=== PATIENT | male | born 1940 | race Two or more races ===

== ENCOUNTER 2020-07-21 17:13 | Inpatient (IN) | payer OTHER, MEDICAID ==
[~2020-07-21] VITALS: Ht 175.3 cm; Wt 65.2 kg
[2020-07-21] MEDS ORDERED: dilTIAZem 25 MG/5 ML VIAL IV ONE ×2 (18:30→20:00)
[2020-07-21 18:42] LABS: Basophils # (auto) 0 10 ^3/uL (0-0.2); Basophils % (auto) 0.3 % (0.0-2.0); Eosinophils # (auto) 0 10 ^3/uL (0-0.8); Eosinophils % (auto) 0.2 % (0.0-7.0); Hematocrit 39.1 % (41.0-53.0); Hemoglobin 12.7 g/dL (13.5-17.5); Lymphocytes # (auto) 0.7 10 ^3/uL (0.4-5.4); Lymphocytes % (auto) 13.5 % (10.0-50.0); Mean Corpuscular Hemoglobin 31.2 pg (28.0-32.0); Mean Corpuscular Hgb Conc. 32.6 g/dL (32.0-36.0); Mean Corpuscular Volume 95.8 fL (80.0-100.0); Monocytes # (auto) 0.6 10 ^3/uL (0-1.3); Monocytes % (auto) 12.3 % (0.0-12.0); Neutrophils # (auto) 3.9 10 ^3/uL (1.6-8.6); Neutrophils % (auto) 73.7 % (37.0-80.0); Nucleated Red Blood Cells % 0.3 %; Platelet Count (auto) 183 10^3/uL (140-450); Red Blood Cells 4.08 10^6/uL (4.5-5.90); Red Cell Distribution Width 14.9 % (11.8-14.3); White Blood Cell 5.3 10^3/uL (4.4-10.8)
[2020-07-21 19:01] LABS: Albumin 3.3 g/dL (3.4-5.0); Calcium 9.4 mg/dL (8.5-10.1); Magnesium 2.5 mg/dL (1.6-2.6); Potassium 4.5 mmol/L (3.5-5.1)
[2020-07-21 19:07] LABS: Bilirubin, Total 1.5 mg/dL (0.2-1.0); Total Protein 8.5 g/dL (6.4-8.2)
[2020-07-21 19:52] LABS: INR 1.27 (0.9-1.15); Partial Thromboplastin Time 26.8 sec (23.0-31.2)
[2020-07-21] MEDS ORDERED: SODIUM CHLORIDE 0.9% 500 ML IV ONE (20:00)
[2020-07-21] MEDS ORDERED: ASPirin 81 mg TAB PO ONE (20:00)
[2020-07-21] MEDS ORDERED: TEMAZEPAM 15 MG CAP PO PRN (21:00)
[2020-07-21] MEDS ORDERED: ONDANSETRON HCL 4 MG/2 ML VIAL IV PRN (21:00)
[2020-07-21] MEDS ORDERED: ACETAMINOPHEN 325 MG TAB PO PRN (21:00)
[2020-07-21] MEDS ORDERED: NITROGLYCERIN 0.4 MG SL TAB SL PRN (21:00)
[2020-07-21] MEDS ORDERED: MORPHINE SULF INJ 2 MG/ML SYRINGE 1ML IV PRN (21:00)
[2020-07-21] MEDS ORDERED: DIGOXIN 0.125 MG TAB PO ONE ×2 (21:30→22:30)
--- NOTE | 2020-07-21 21:46 | NUR ---
ER CALLED CARDIO CONSULT WITH DR. STALEY.
[2020-07-21] MEDS: APIXABAN 2.5 MG TAB PO SCH (22:30)
[2020-07-21] MEDS: ATORVASTATIN 20 MG TAB PO SCH (22:30)
[2020-07-21] MEDS: METOPROLOL TARTRATE 50 MG TAB PO SCH (22:30)
[2020-07-21] MEDS ORDERED: AMIODARONE HCL 150 MG in D5W 5% 100 ML IV ONE (23:15)
[2020-07-21] MEDS ORDERED: AMIODARONE 450mg/250ml AE 250 ML IV SCH (23:30)
[2020-07-21] MEDS ORDERED: AMIODARONE HCL (50 MG/ ML) 3 ML VIAL IV ONE (23:36)
[2020-07-22] MEDS ORDERED: AMIODARONE 450mg/250ml AE 250 ML IV SCH (05:30)
[2020-07-22 06:32] LABS: Basophils # (auto) 0.1 10 ^3/uL (0-0.2); Basophils % (auto) 0.9 % (0.0-2.0); Eosinophils # (auto) 0.2 10 ^3/uL (0-0.8); Eosinophils % (auto) 2.8 % (0.0-7.0); Hematocrit 38.5 % (41.0-53.0); Hemoglobin 12.4 g/dL (13.5-17.5); Lymphocytes # (auto) 1.1 10 ^3/uL (0.4-5.4); Lymphocytes % (auto) 18.8 % (10.0-50.0); Mean Corpuscular Hemoglobin 31.2 pg (28.0-32.0); Mean Corpuscular Hgb Conc. 32.2 g/dL (32.0-36.0); Monocytes # (auto) 0.8 10 ^3/uL (0-1.3); Monocytes % (auto) 14.2 % (0.0-12.0); Neutrophils # (auto) 3.7 10 ^3/uL (1.6-8.6); Neutrophils % (auto) 63.3 % (37.0-80.0); Nucleated Red Blood Cells % 0.6 %; Platelet Count (auto) 187 10^3/uL (140-450); Red Blood Cells 3.97 10^6/uL (4.5-5.90); Red Cell Distribution Width 15.1 % (11.8-14.3); White Blood Cell 5.8 10^3/uL (4.4-10.8)
[2020-07-22 06:53] LABS: Calcium 9.1 mg/dL (8.5-10.1); Potassium 5.2 mmol/L (3.5-5.1)
[2020-07-22 06:58] LABS: Bilirubin, Total 1.9 mg/dL (0.2-1.0)
[2020-07-22] MEDS ORDERED: AMIODARONE HCL 200 MG TAB PO ONE (08:00)
[2020-07-22] MEDS: METOPROLOL TARTRATE 50 MG TAB PO SCH ×2 (09:42→10:00)
[2020-07-22] MEDS: FUROSEMIDE 40 MG TAB PO SCH (09:42)
[2020-07-22] MEDS: PANTOPRAZOLE 40 MG TAB PO SCH (09:42)
[2020-07-22] MEDS ORDERED: ASPirin 81 mg TAB PO SCH (10:00)
[2020-07-22] MEDS: APIXABAN 2.5 MG TAB PO SCH ×2 (10:00→22:04)
[2020-07-22] MEDS ORDERED: LISINOPRIL 10 MG TAB PO SCH (10:00)
[2020-07-22] MEDS ORDERED: BISACODYL 10 MG RECT SUPP PR PRN (10:00)
[2020-07-22] MEDS ORDERED: ALBUTEROL SULF 2.5 MG/0.5ML(0.5%) NEB SOLN NEB PRN (10:00)
[2020-07-22] MEDS ORDERED: DOCUSATE SOD 100 MG CAP PO PRN (10:00)
--- NOTE | 2020-07-22 12:25 | NUR ---
Received a call from Vandana at [facility] [phone], asking if I would fax clinicals to her because she had not received anything yet, verbalized understanding and gave update verbal report on the patient and faxed clinicals as requested. Addendum: 07/22/20 at 1544 by Merle Smith RN Faxed also Home Health Safety Eval.
[2020-07-22 12:44] VITALS: BP 140/80
--- NOTE | 2020-07-22 12:45 | NUR ---
Telemetry admit from ER JUSTYNAKIEL admitted to Telemetry unit after SBAR received. Patient oriented to SARAH MARKS RN primary RN, unit, room, bed, and unit policies regarding patient care and visiting hours. Patient now on continuous telemetry monitoring, tele box # 32 and telemetry reading on arrival to unit is Afib 81 . Patient placed on bedside oxygen, weighed by bedscale and encouraged to call if they need something. All questions and concerns addressed, patient verbalized understanding.
[2020-07-22] MEDS ORDERED: METO-159 PO (13:39)
--- NOTE | 2020-07-22 13:45 | NUR ---
Called Vandana RANGEL at [facility] [phone], stated she received the clinicals but wanted the ER notes to see if it showed the elevated HR, stated I would fax the ER notes, which was done.
[2020-07-22] MEDS ORDERED: TAMS0.4C36 PO (14:04)
[2020-07-22] MEDS ORDERED: ATOR20TA50 PO (14:04)
[2020-07-22] MEDS ORDERED: FIN5T PO (14:04)
[2020-07-22] MEDS ORDERED: APIX2.5T PO (14:04)
[2020-07-22] MEDS ORDERED: FUR20T PO (14:04)
[2020-07-22 14:15] VITALS: BP 140/80
[2020-07-22 14:29] LABS: Urine Bacteria NONE SEEN /hpf (None Seen); Urine Blood Negative /uL (Negative); Urine Hyaline Cast MANY /lpf (0 - 2); Urine Mucus FEW (None Seen); Urine Specific Gravity 1.015 (1.001-1.035); Urine WBC 18 /hpf (0 - 3)
[2020-07-22 14:40] LABS: Protein, Urine 158.9 mg/dL (0.0-11.9)
--- NOTE | 2020-07-22 15:10 | NUR ---
Spoke to informed him that another RN and I were unable to insert the jauregui for patient. gave me the order to consult urology with Dr.Samuel Schroeder. Consult ordered.
--- NOTE | 2020-07-22 15:40 | NUR ---
Received a call from Vandana RANGEL at [facility] stating, still reviewing the chart but needs notes stating the patient was started on a Drip for his HR faxed over nurses notes from the ER stating that he was started on Amiodarone Drip. Gave authorization for the Home Health [id number] and it will be through [facility]. Called Kindra CHAO and made her aware.
[2020-07-22] MEDS ORDERED: LIDOCAINE 2% JELLY 11ml (GLYDO) UR ONE (16:15)
[2020-07-22] MEDS ORDERED: MORPHINE SULF INJ 2 MG/ML SYRINGE 1ML IV ONE (16:45)
[2020-07-22 16:48] VITALS: BP 128/70
[2020-07-22] MEDS ORDERED: diphenhdrAMINE HCL 50 MG/1 ML VL IV PRN (17:00)
--- NOTE | 2020-07-22 17:00 | NUR ---
ASPHALT ENGINEER Maribel Davey came to put in coude catheter for patient since we could not put in a jauregui for patient. Patient was in pain ASPHALT ENGINEER ordered 2mg morphine once before the procedure. Patient receive the morphine started itching a little bit , patient states that he is not allergic to morphine and states that he often itches at home. The itching stopped but ASPHALT ENGINEER still ordered benadryl 25mg IV q 4 PRN.
[2020-07-22] MEDS ORDERED: DEXTROSE (50%) 50ML SYRG IV PRN (18:30)
[2020-07-22] MEDS: TAMSULOSIN HYDROCHLORIDE 0.4 MG CAP PO SCH (18:51)
[2020-07-22 21:53] VITALS: BP 128/77
[2020-07-22] MEDS: InsuLIN REG 1unit/0.01ml Soln (100units/ml) SC SCH (21:59)
[2020-07-22] MEDS: SENNA 8.6 MG TAB PO SCH (22:00)
[2020-07-22] MEDS: ACCU-CHEK COMFORT CURVE STRIP VI SCH (22:03)
[2020-07-22] MEDS: ATORVASTATIN 20 MG TAB PO SCH (22:03)
[2020-07-22] MEDS: AMIODARONE HCL 200 MG TAB PO SCH (22:04)
[2020-07-23 05:56] VITALS: BP 144/70
[2020-07-23] MEDS: InsuLIN REG 1unit/0.01ml Soln (100units/ml) SC SCH ×4 (06:03→22:00)
[2020-07-23] MEDS: ACCU-CHEK COMFORT CURVE STRIP VI SCH ×4 (06:05→22:00)
--- NOTE | 2020-07-23 07:13 | NUR ---
closing note pt is on 2Lnc. no complaints of pain or discomfort. endorsed care to day shift JUAREZ Fortune.
--- NOTE | 2020-07-23 09:00 | NUR ---
Patient refused labs at 6:00 am for production shift supervisor nurse. This morning the labeling associate came again patient still refused. I went to talk to patient he was upset and said that yesterday he had too many labs done that he does not want to get poked again.
--- NOTE | 2020-07-23 09:34 | NUR ---
Respiratory note: PT ASSESSED FOR PRN MED NEB TX. PT IN NO RESPIRATORY DISTRESS AT THIS TIME. SPO2 WAS 99% ON 2L NC. HR 67, RR 15. NO TX GIVEN AT THIS TIME.
[2020-07-23 09:48] VITALS: BP 100/57
--- NOTE | 2020-07-23 10:00 | NUR ---
Patient reports that he walks fine and does not need P.T.
[2020-07-23] MEDS: AMIODARONE HCL 200 MG TAB PO SCH ×2 (11:38→22:00)
[2020-07-23] MEDS: APIXABAN 2.5 MG TAB PO SCH (11:38)
[2020-07-23] MEDS: PANTOPRAZOLE 40 MG TAB PO SCH (11:41)
[2020-07-23] MEDS: FUROSEMIDE 40 MG TAB PO SCH (11:41)
[2020-07-23] MEDS: METOPROLOL TARTRATE 50 MG TAB PO SCH ×2 (11:42→22:00)
[2020-07-23 13:00] VITALS: BP 96/57
--- NOTE | 2020-07-23 14:19 | NUR ---
Lab came again patient refused again and said that he will not get poked. I got transfered to to let him know , but there was no answer. I will try again.
--- NOTE | 2020-07-23 14:36 | NUR ---
Assessment Patient is an 80-year-old male. Assessment was completed with patient Caregiver Yenni . Per Yenni prior to admission patient lived home with her and functioned with assistance. Per Yenni patient will return home to his prior living arrangements post discharge and she will transport patient home. Advised Yenni there is a social service consult for [facility] for jauregui care, physical therapy, and safety evaluation. Informed Yenni she has the right to participate in all discharge planning. Yenni verbalized understanding and agreed to discharge plan. Faxed clinical information to [facility]. Adan Villa with [facility] PH: [phone] patient has been accepted and service to start within 24-48hrs upon d/c day. Addendum: 07/23/20 at 1450 by BRANDON CHAO Amended: Links added.
[2020-07-23 17:00] VITALS: BP 102/65
--- NOTE | 2020-07-23 17:23 | NUR ---
Spoke to to tell him that patient is refusing labs. aware.
[2020-07-23] MEDS: TAMSULOSIN HYDROCHLORIDE 0.4 MG CAP PO SCH (18:10)
--- NOTE | 2020-07-23 19:34 | NUR ---
PATIENT EDUCATED ON THE IMPORTANCE OF LABS AND TREATMENT. PATIENT VERBALIZED UNDERSTANDING BUT STILL REFUSED.DR.SANDHU ZEPEDA.
[2020-07-23 21:00] VITALS: BP 92/51
[2020-07-23] MEDS: SENNA 8.6 MG TAB PO SCH (22:00)
--- NOTE | 2020-07-23 22:00 | NUR ---
Pt refused Accucheck/Medication Pt verbalized he does not want to be poked by any needles. Educated pt regarding importance of maintaining optimal glucose levels to prevent further complications. Pt tried to deny eliquis, and Lipitor, however accepted and decided to receive it.
[2020-07-23 22:43] LABS: Albumin 2.3 g/dL (3.4-5.0); Calcium 8.3 mg/dL (8.5-10.1); Potassium 4.4 mmol/L (3.5-5.1)
[2020-07-23 22:47] LABS: Phosphorus 4.3 mg/dL (2.5-4.90); Total Protein 6.2 g/dL (6.4-8.2)
[2020-07-23 22:54] LABS: BUN/Creatinine Ratio 28.5
[2020-07-24] MEDS: APIXABAN 2.5 MG TAB PO SCH ×3 (00:10→22:12)
[2020-07-24] MEDS: ATORVASTATIN 20 MG TAB PO SCH ×2 (00:10→22:12)
[2020-07-24 05:00] VITALS: BP 108/64
--- NOTE | 2020-07-24 05:00 | NUR ---
PT refused labs. Pt educated regarding importance of drawing Troponin, pt verbalized understanding but still refused saying "I do not want to be poked any longer, I am tired of it and want to go home already". Per engineering writer will attempt again in a few hours.
[2020-07-24] MEDS: InsuLIN REG 1unit/0.01ml Soln (100units/ml) SC SCH ×4 (06:25→22:08)
[2020-07-24] MEDS: ACCU-CHEK COMFORT CURVE STRIP VI SCH ×4 (06:25→22:08)
--- NOTE | 2020-07-24 07:00 | NUR ---
Pt refused AM accucheck. Pt educated regarding importance but still refused. MD is already aware of refusal of treatment.
--- NOTE | 2020-07-24 07:00 | NUR ---
PRN MN TX NOT INDICATED AT THIS TIME. PT IS AWAKE, ALERT AND ORIENTED. PT IN RA, 96% O2 SATS, HR 61 BPM, RR18 BPM, BS ARE CLEAR TO AUSCULTATION. RESPIRATION IS EVEN AND NON LABORED. PT DENIES SOB OR ANY OTHER RESPIRATORY DISTRESS. WILL CONTINUE TO MONITOR PT.
[2020-07-24 09:00] VITALS: BP 104/44
[2020-07-24] MEDS: METOPROLOL TARTRATE 50 MG TAB PO SCH ×2 (10:00→22:00)
[2020-07-24] MEDS: AMIODARONE HCL 200 MG TAB PO SCH ×2 (10:33→22:13)
[2020-07-24] MEDS: PANTOPRAZOLE 40 MG TAB PO SCH (10:34)
[2020-07-24] MEDS: FUROSEMIDE 40 MG TAB PO SCH (10:36)
--- NOTE | 2020-07-24 12:30 | NUR ---
DOCTOR BOWEN AT BEDSIDE DISCUSSING POC WITH PATIENT, PATIENT TO SEE DOCTOR BOWEN OUT PATIENT IN 2 WEEKS, PATIENT TO GO HOME ON ALLOPURINOL MEDICATION. PATIENT VERBALIZES UNDERSTANDING AND AGREES WITH POC. MD INFORMED PATIENT DOES NOT WANT TO GO HOME WITH SERRANO CATHETER, PER MD OKAY TO D/C SERRANO ONCE'S PATIENT IS DISCHARGED BY PCP.
[2020-07-24] MEDS ORDERED: ALLOPURINOL 100 MG TAB PO ONE (12:45)
[2020-07-24 13:00] VITALS: BP 137/71
[2020-07-24 17:06] VITALS: BP 104/57
[2020-07-24] MEDS: TAMSULOSIN HYDROCHLORIDE 0.4 MG CAP PO SCH (17:36)
--- NOTE | 2020-07-24 19:00 | NUR ---
Opening Shift Note Assumed care of patient, awake and alert. No S/S of distress/SOB or pain. Insructed on POC and to callfor assist PRN, will continue to monitor for changes Q1hr and PRN.
[2020-07-24 22:00] VITALS: BP 127/62
[2020-07-24] MEDS: SENNA 8.6 MG TAB PO SCH (22:12)
--- NOTE | 2020-07-24 22:35 | NUR ---
PT ASSESSED FOR PRN MED NEB TX. SPO2 97% ON 2L NC, HR 58. PT DENIES ANY RESPIRATORY DISTRESS. NO TX INDICATED. PT IS AWARE TO HAVE RT PAGED IF TX NEEDED.
[2020-07-25 05:00] VITALS: BP 102/53
--- NOTE | 2020-07-25 05:00 | NUR ---
Pt refused AM blood draw Per pharmacy will come back in a few hours to try again.
--- NOTE | 2020-07-25 05:33 | NUR ---
Respiratory note: PT ASSESSED FOR PRN MED NEB TX. PT IS RESTING IN BED. 97% SPO2 ON RA, HR 63, 14 RR. BS WERE CLR/DIM. NO MED NEB TX GIVEN DUE TO NO DISTRESS NOTED AT THIS TIME. INFORMED PT TO CALL IF MED NEB NEEDED.
[2020-07-25] MEDS: InsuLIN REG 1unit/0.01ml Soln (100units/ml) SC SCH ×4 (06:10→22:00)
[2020-07-25] MEDS: ACCU-CHEK COMFORT CURVE STRIP VI SCH ×4 (06:11→22:00)
[2020-07-25 06:42] VITALS: BP 102/53
--- NOTE | 2020-07-25 07:10 | NUR ---
Opening Shift Note Assumed care of patient, awake and alert. No S/S of distress/SOB or pain. Insructed on POC and to callfor assist PRN, will continue to monitor for changes Q1hr and PRN. Bed alarm on
[2020-07-25 08:41] VITALS: BP 121/64
[2020-07-25] MEDS: APIXABAN 2.5 MG TAB PO SCH ×2 (09:30→22:16)
[2020-07-25] MEDS: ALLOPURINOL 100 MG TAB PO SCH (09:30)
[2020-07-25] MEDS: PANTOPRAZOLE 40 MG TAB PO SCH (09:30)
[2020-07-25] MEDS: AMIODARONE HCL 200 MG TAB PO SCH ×2 (09:31→22:12)
[2020-07-25] MEDS: FUROSEMIDE 40 MG TAB PO SCH (09:32)
[2020-07-25] MEDS: METOPROLOL TARTRATE 50 MG TAB PO SCH ×3 (10:00→22:00)
[2020-07-25] MEDS ORDERED: cefTRIAXone 1GM/50ML D5W 50 ML IV ONE (10:15)
--- NOTE | 2020-07-25 11:06 | NUR ---
RECEIVED PHONE CALL FROM [employer] INFORMING RN THAT PATIENT IS POSITIVE FOR MRSA IN URINE, SPOKE WITH DOCTOR DARRIN INFORMING MD OF PATIENTS MRSA RESULTS PER MD HOLD D/C TILL TOMORROW AND START PATIENT ON ZYVOX (SEE EMR FOR COMPLETE ORDERS)
--- NOTE | 2020-07-25 11:53 | NUR ---
Nutrition Assessment Notes please see attached link fro complete assessment [employer] needs BW 67 [id number] kcals (25-30 kcal/kgBW), Est Protein needs: 53-67 gms/day (0.8-1.0 gm/kgBW r/t elev RFT). Will continue to monitor and reassess prn. Addendum: 07/25/20 at [address] Amended: Links added.
[2020-07-25] MEDS ORDERED: LINEZOLID 600MG/300ML 300 ML IV ONE (12:00)
--- NOTE | 2020-07-25 12:59 | NUR ---
RECEIVED PHONE CALL [facility] PER CHIEF GUARD PATIENT HAS BEEN APPROVED FOR [facility].
[2020-07-25 13:00] VITALS: BP 128/68
--- NOTE | 2020-07-25 16:00 | NUR ---
IV removal/IV insertion IV leaking and removed with clean sterile technique, catheter fully intact. Pressure dressing applied to site. Patient tolerated well. IV insertion IV access obtained, via clean sterile technique by inserting 22 gauge catheter at right wrist after 1 attempt. IV secured properly. No trauma to site. Patient tolerated well.
[2020-07-25 16:25] VITALS: BP 97/57
[2020-07-25] MEDS: TAMSULOSIN HYDROCHLORIDE 0.4 MG CAP PO SCH (17:52)
--- NOTE | 2020-07-25 19:25 | NUR ---
Respiratory note: ASSESSMENT FOR PRN MED NEB TX. PT IN NO RESPIRATORY DISTRESS, SITTING UP IN BED WATCHING TV. HR 65, SPO2 96% ON ROOM AIR, RR 17, BS DIMINISHED CLEAR. MED NEB TX NOT INDICATED AT THIS TIME. WILL CONTINUE TO MONITOR.
--- NOTE | 2020-07-25 20:37 | NUR ---
Pt refused labs Per feed miller, will attempt again in a few hours. Pt educated regarding importance regarding drawing labs. Pt verbalized understanding but still refuses.
[2020-07-25 22:00] VITALS: BP 111/61
[2020-07-25] MEDS ORDERED: PATIENTS OWN MEDICATION (ZYVOX 600 MG) IV SCH (22:00)
[2020-07-25] MEDS: LINEZOLID 600MG/300ML 300 ML IV SCH (22:11)
[2020-07-25] MEDS: SENNA 8.6 MG TAB PO SCH (22:17)
[2020-07-25] MEDS: ATORVASTATIN 20 MG TAB PO SCH (22:17)
[2020-07-26 05:00] VITALS: BP 109/67
[2020-07-26] MEDS: ACCU-CHEK COMFORT CURVE STRIP VI SCH ×2 (06:22→11:30)
[2020-07-26] MEDS: InsuLIN REG 1unit/0.01ml Soln (100units/ml) SC SCH ×2 (06:24→12:00)
[2020-07-26 09:00] VITALS: BP 124/70
--- NOTE | 2020-07-26 09:41 | NUR ---
Received a call from Vandana RANGEL at [facility] [phone], gave update on patient and faxed progress notes, stated he has continue stay for 07/25/20 # [id number].
[2020-07-26] MEDS ORDERED: CARVEDILOL 3.125 MG TAB PO SCH (10:00)
--- NOTE | 2020-07-26 10:00 | NUR ---
SERRANO CATHETER SWITCHED TO LEG BAG, PATIENT EDUCATED ON HOW TO USE AND DRAIN LEG BAG, PATIENT VERBALIZED UNDERSTANDING AND RETURNED DEMONSTRATION.
[2020-07-26] MEDS: LINEZOLID 600MG/300ML 300 ML IV SCH (10:19)
[2020-07-26] MEDS: PANTOPRAZOLE 40 MG TAB PO SCH (10:20)
[2020-07-26] MEDS: ALLOPURINOL 100 MG TAB PO SCH (10:20)
[2020-07-26] MEDS: AMIODARONE HCL 200 MG TAB PO SCH (10:20)
[2020-07-26] MEDS: APIXABAN 2.5 MG TAB PO SCH (10:22)
[2020-07-26] MEDS: FUROSEMIDE 40 MG TAB PO SCH (10:23)
[2020-07-26 13:00] VITALS: BP 131/80
--- NOTE | 2020-07-26 14:25 | NUR ---
Discharge instructions given as ordered. Encourage to follow up with PMD as instructed. Gupta catheter education given. All questions and concerns addressed. Patient verbalized understanding. Medication reconciliation form completed and copy given to patient. IV removed with catheter intact, pressure dressing applied. Telemetry unit returned to ICU. Prescribed medications given to patient. Patient taken to vehicle via wheelchair with all personal belongings, accompanied by staff. Family member waiting in front lobby for transportation home. No distress noted at time of departure.
== END 2020-07-26 14:25 | disposition home health service (06) | DRG 280 ==
LOC: EDBD 17:13 → ER 17:13 → TELE 17:14 → TELE-CENTR 07-22 11:50
PROVIDERS: ADMIT Nurse Practitioner; ATTEND Internal Medicine
PROC: 4B02XSZ Measurement of Cardiac Pacemaker, External Approach (ICD-10-PCS; principal; 2020-07-22)
DX: I48.91 Unspecified atrial fibrillation (principal); I21.A1 Myocardial infarction type 2; N17.0 Acute kidney failure with tubular necrosis; T83.511A Infection and inflammatory reaction due to indwelling urethral catheter, initial encounter; I13.0 Hypertensive heart and chronic kidney disease with heart failure and stage 1 through stage 4 chronic kidney disease, or unspecified chronic kidney disease; Z16.11 Resistance to penicillins; D68.9 Coagulation defect, unspecified; E87.1 Hypo-osmolality and hyponatremia; B95.62 Methicillin resistant Staphylococcus aureus infection as the cause of diseases classified elsewhere; D63.8 Anemia in other chronic diseases classified elsewhere; Z79.01 Long term (current) use of anticoagulants; E11.22 Type 2 diabetes mellitus with diabetic chronic kidney disease; E11.51 Type 2 diabetes mellitus with diabetic peripheral angiopathy without gangrene; E78.5 Hyperlipidemia, unspecified; E87.5 Hyperkalemia; I25.10 Atherosclerotic heart disease of native coronary artery without angina pectoris; I42.9 Cardiomyopathy, unspecified; J45.909 Unspecified asthma, uncomplicated; K59.09 Other constipation; N40.1 Benign prostatic hyperplasia with lower urinary tract symptoms; R33.8 Other retention of urine; Z78.9 Other specified health status; Z86.711 Personal history of pulmonary embolism; Z87.891 Personal history of nicotine dependence; Z91.19 Patient's noncompliance with other medical treatment and regimen; Z95.0 Presence of cardiac pacemaker; Z95.1 Presence of aortocoronary bypass graft; I50.9 Heart failure, unspecified; N18.30 Chronic kidney disease, stage 3 unspecified
CPT/HCPCS: 36415; 71045; 76775; 80053; 81001; 82306; 82570; 82962; 83735; 83880; 83970; 84100; 84156; 84300; 84443; 84484; 84550; 85025; 85610; 85730; 87086; 87088; 87186; 93005; 93306; 93926; 96361; 96365; 96366; 96375; 96376; G0378; J0696; J1815; J7060